=== PATIENT | female | born 1960 | race Caucasian/White ===

== ENCOUNTER 2018-07-21 15:39 | Emergency (ER) | payer MEDICARE, OTHER, SELFPAY ==
[2018-07-21 15:45] VITALS: BP 125/73; PULSE 92; RESP 15; TEMP 36.8; O2SAT 98; BMI 36.6
--- NOTE | 2018-07-21 17:16 | DI.RAD.S_ITS ---
PROCEDURE: XR PELVIS 1-2V INDICATIONS: fall pain center supra pubic TECHNIQUE: One view(s) of the pelvis acquired. COMPARISON: [facility], , PELVIS WITH BILATERAL HIPS, 02/14/2011, 11:26. FINDINGS: Bones: No fractures or dislocations. No suspicious bony lesions. Mild bilateral hip degenerative changes. Lower lumbar posterior spinal fusion hardware noted. Soft tissues: Visualized bowel gas pattern is normal. IMPRESSION: No acute fracture or dislocation of the pelvis identified. Dictated by: Tian Butterfield M.D. on 07/21/2018 at 17:43 Approved by: Tian Butterfield M.D. on 07/21/2018 at 17:45
--- NOTE | 2018-07-21 17:25 | ED.FALL ---
HPI - Fall General Chief Complaint: Urogenital-Female Stated Complaint: fall yesterday, thinks dislodged bladder mesh Time Seen by Provider: 07/21/18 16:07 Source: patient Mode of arrival: ambulatory Limitations: no limitations History of Present Illness HPI Narrative: Patient is a 58-year-old female who presents after ground level fall yesterday. She states that she was going up 1 stair outside when she tripped falling forward landing on her hands and knees. She was able to go about doing the rest of her work. She went to sleep when she woke up suddenly at around 1 or 2:00 a.m. with severe sharp sudden suprapubic pain. It is pinpoint to touch. She is ambulatory. Pain is nonradiating. She is worried because she had a bladder suspension 5 years ago feels like something may be wrong. She has no urination of blood no fevers. MD complaint: fall Related Data Home Medications Medication Instructions Recorded Confirmed atorvastatin [Lipitor] 20 mg PO HS #0 03/29/17 levothyroxine 150 mcg PO QAM #0 03/29/17 pantoprazole 20 mg PO QDAY #0 03/29/17 tizanidine 1 - 2 tab PO HSP PRN #0 03/29/17 Previous Rx's Medication Instructions Recorded hydromorphone [Dilaudid] 2 mg PO Q4HP PRN #40 tab 04/08/17 hydroxyzine pamoate 25 mg PO Q4HP PRN #40 cap 04/08/17 oxycodone 5 mg PO Q4HP PRN #90 tab 04/08/17 Allergies Allergy/AdvReac Type Severity Reaction Status Date / Time Opioids - Morphine Analogues AdvReac Severe ITCHING Verified 07/21/18 15:51 [OPIOIDS - MORPHINE ANALOGUES] Review of Systems Review of Systems GENERAL: Denies chills, fatigue, malaise, fever, sweats, travel HEENT: Denies sinus pain, ear pain, sore throat, difficulty swallowing, neck pain RESPIRATORY: Denies dyspnea, cough, wheezing, hemoptysis, sputum. CARDIOVASCULAR: Denies chest pain, palpitations, orthopnea, edema GASTROINTESTINAL: Denies nausea, vomiting, abdominal pain, diarrhea, constipation, melena. : + suprapubic pain Denies dysuria, frequency, incontinence, hematuria, urinary retention, flank pain. MUSCULOSKELETAL: Denies weakness, joint pain, or bony pain SKIN: No rash, no erythema, no pruritus NEUROLOGIC: Denies weakness, dizziness, headache, numbness, change in speech, confusion PSYCHIATRIC: No concerning psychosocial issues. 12 point review of systems is negative except for those stated above and HPI Exam Initial Vital Signs Initial Vital Signs: Vital Signs Temperature 98.2 F 07/21/18 15:45 Pulse Rate 92 H 07/21/18 15:45 Respiratory Rate 15 07/21/18 15:45 Blood Pressure 125/73 07/21/18 15:45 Pulse Oximetry 98 07/21/18 15:45 GENERAL: Well-appearing slightly overweight female no acute distress HEENT: Head atraumatic,EOMI, pupils reactive, face symmetric, moist mucous membranes CARDIOVASCULAR: Regular rate and rhythm without murmurs, rubs or gallops. RESPIRATORY: Breath sounds equal bilaterally, no wheezes rales or rhonchi. ABDOMEN: Soft, a point tenderness suprapubic on very tender to minimal touch however no tenderness anywhere else in the abdomen. No sign of trauma no contusion. EXTREMITIES: Normal range of motion, no clubbing or edema. Neurovascularly intact. pelvis is stable hips stable NEUROLOGICAL: Alert and oriented x4.Normal gait and speech. SKIN: Warm, dry, no laceration, no petechiae, no rashes or lesions. [facility] Surgical History History of bladder suspension procedure (Acute) Social History Smoking Status: Unknown if ever smoked Social History Smoking Status: Unknown if ever smoked Course Orders Ordered: ED Orders 07/21/18 17:16 XR pelvis 1-2V Stat Discontinued Medications Acetaminophen (Tylenol) 650 mg PO NOW ONE Stop: 07/21/18 17:17 Last Admin: 07/21/18 17:42 Dose: 650 mg Vital Signs - 8 hr 07/21/18 15:45 Temperature 98.2 F Pulse Rate 92 H Respiratory Rate 15 Blood Pressure 125/73 Pulse Oximetry 98 MDM - Fall Lab Data Urine Dip Bedside Urine Glucose Negative Bedside Urine Bilirubin - Negative Bedside Urine Ketone - Negative Urine Specific [place] 1.015 Bedside Urine Occult Blood - Negative Bedside Urine pH 6.0 Bedside Urine Protein - Negative Bedside Urine Urobilinogen - Negative Bedside Urine Nitrite - Negative Bedside Urine Leukocytes - Negative Esterase Imaging Data Pelvic x-ray: Radiologist's impression: PROCEDURE: XR PELVIS 1-2V INDICATIONS: fall pain center supra pubic TECHNIQUE: One view(s) of the pelvis acquired. COMPARISON: [facility], , PELVIS WITH BILATERAL HIPS, 02/14/2011, 11:26. FINDINGS: Bones: No fractures or dislocations. No suspicious bony lesions. Mild bilateral hip degenerative changes. Lower lumbar posterior spinal fusion hardware noted. Soft tissues: Visualized bowel gas pattern is normal. IMPRESSION: No acute fracture or dislocation of the pelvis identified. Dictated by: Tian Butterfield M.D. on 07/21/2018 at 17:43 Approved by: Tian Butterfield M.D. on 07/21/2018 at 17:45 Discharge Plan Departure Patient Disposition: Home Clinical Impression: Abdominal pain Qualifiers: Abdominal location: lower abdomen, unspecified Qualified Code(s): R10.30 - Lower abdominal pain, unspecified Instructions: DI for Abdominal Pain-Adult Activity Restrictions/Additional Instructions: *You have been diagnosed with abdominal pain *What to do: At this time x-rays negative for any fracture. If your continuing to have severe abdominal discomfort and pain I recommend CT of abdomen however at this time I do not think it is indicated. *Continue to take medications as directed Tylenol 650 mg every 4-6 hours if needed for pain *Follow up with your primary care provider in 2-3 days *Return to ER if you should have increasing pain, persistent vomiting or any new, worsening or concerning symptoms Prescriptions: No Action pantoprazole 20 MG tablet,delayed release (DR/EC) 20 mg PO QDAY Qty: 0 RF: 0 levothyroxine 150 MCG tablet 150 mcg PO QAM Qty: 0 RF: 0 atorvastatin [Lipitor] 20 MG tablet 20 mg PO HS Qty: 0 RF: 0 tizanidine 2 MG tablet 1 - 2 tab PO HSP PRNQty: 0 RF: 0 hydromorphone [Dilaudid] 2 MG tablet 2 mg PO Q4HP PRNQty: 40 RF: 0 oxycodone 5 MG tablet 5 mg PO Q4HP PRNQty: 90 RF: 0 hydroxyzine pamoate 25 MG capsule 25 mg PO Q4HP PRNQty: 40 RF: 0 Referrals: Sherry Zacarias DO [Primary Care Provider] -
[2018-07-21] MEDS: ACETAMINOPHEN 325 MG TABLET 650 MG PO (17:42)
[2018-07-21 18:15] VITALS: BP 140/69; PULSE 86; RESP 17; O2SAT 99
== END 2018-07-21 18:40 | disposition home or self-care (01) ==
PROVIDERS: Emergency Provider Emergency Medicine; PCP Family Medicine
DX: R10.30 Lower abdominal pain, unspecified (principal); W19.XXXA Unspecified fall, initial encounter
CPT/HCPCS: 72170; 81003; 99282; 99283